=== PATIENT | female | born 1955 | race Caucasian/White ===

== ENCOUNTER → 2018-10-22 | Outpatient (CLI) | payer MEDICARE ==
--- NOTE | 2018-10-22 14:44 | BD ---
EXAMINATION TYPE: Axial Bone Density DATE OF EXAM: 10/22/2018 COMPARISON: NONE CLINICAL HISTORY: Height: 64 IN Weight: 232 LBS RISK FACTORS HISTORY OF: Active: YES Postmenopausal woman: AGE 53 MEDICATIONS: Additional Medications: VIT D, MULTI VIT, CLARITIN, TYLENOL, FLONASE, BABY ASPIRIN, EXAM MEASUREMENTS: Bone mineral densitometry was performed using the i-nexus System. Bone mineral density as measured about the Lumbar spine is: ----- L1-L4(G/cm2): 1.363 T Score Values are as follows: ----- L2: 1.2 ----- L3: 1.7 ----- L4: 1.5 ----- L1-L4: 1.5 Bone mineral density BASELINE Bone mineral density about the R hip (g/cm2): 1.302 Bone mineral density about the L hip (g/cm2): 1.288 T Score values are as follows: -----R Neck: 1.9 -----L Neck: 1.8 -----R Total: 2.8 -----L Total: 2.6 Bone mineral density BASELINE IMPRESSION: No evidence for osteoporosis or osteopenia. NOTE: T-SCORE=SD OF THE YOUNG ADULT MEAN.
--- NOTE | 2018-10-24 08:53 | MM ---
Reason for exam: screening (asymptomatic). Last mammogram was performed 5 years and 2 months ago. History: Patient is postmenopausal. Family history of breast cancer in paternal aunt at age 50. Physical Findings: A clinical breast exam by your physician is recommended on an annual basis and results should be correlated with mammographic findings. MG 3D Screening Mammo W/Cad Bilateral CC and MLO view(s) were taken. Prior study comparison: August 20, 2013, left diagnostic mammogram w/CAD. February 04, 2013, [facility] DIGITAL LEFT BREAST MAMMOGRAM w/CAD. The breast tissue is heterogeneously dense. This may lower the sensitivity of mammography. There is chronic nodularity in the right breast. Dense tissues anteriorly on a background of scattered densities. No significant changes when compared with prior studies. ASSESSMENT: Benign, BI-RAD 2 RECOMMENDATION: Routine screening mammogram of both breasts in 1 year.
== END | disposition home or self-care (01) ==
LOC: RADMAMWWP 13:53
PROVIDERS: ATTEND Family Medicine
DX: Z12.31 Encounter for screening mammogram for malignant neoplasm of breast (principal); M89.9 Disorder of bone, unspecified
CPT/HCPCS: 77063; 77067; 77080

== ENCOUNTER → 2019-12-01 | Outpatient (CLI) | payer MEDICARE ==
[2019-12-01 16:54] LABS: Basophils # (A) 0.1 k/uL (0-0.2); Basophils % (A) 1 %; Eosinophils # (A) 0.3 k/uL (0-0.7); Eosinophils % (A) 4 %; HCT 44.7 % (34.0-46.0); HGB 14.6 gm/dL (11.4-16.0); Lymphocytes # (A) 2.6 k/uL (1.0-4.8); Lymphocytes % (A) 29 %; MCH 29.1 pg (25.0-35.0); MCHC 32.7 g/dL (31.0-37.0); Mean Platelet Volume 7.5; Monocytes # (A) 0.4 k/uL (0-1.0); Monocytes % (A) 5 %; Neutrophils # (A) 5.3 k/uL (1.3-7.7); Neutrophils % (A) 59 %; Platelet Count 226 k/uL (150-450); RBC 5.02 m/uL (3.80-5.40); RDW 13.4 % (11.5-15.5)
== END | disposition home or self-care (01) ==
LOC: LABPAT 15:41
PROVIDERS: ATTEND Obstetrics & Gynecology
DX: Z01.818 Encounter for other preprocedural examination (principal); Z01.812 Encounter for preprocedural laboratory examination; N95.0 Postmenopausal bleeding; R93.89 Abnormal findings on diagnostic imaging of other specified body structures; I10 Essential (primary) hypertension
CPT/HCPCS: 85025; 93005

== ENCOUNTER 2019-12-14 08:50 | Day surgery (SDC) | payer MEDICARE ==
[2019-12-09 11:19] VITALS: BMI 39.6
[~2019-12-14 08:50] MED LIST: DEXAMETHASONE SOD PHOSPHATE 10 MG/ML 1 ML VIAL IV ONE; HYDROmorphone 0.5 MG/0.5 ML SYRINGE IVP PRN; LACTATED RINGERS 1,000 ML IV SCH; MIDAZOLAM 2 MG/2 ML VIAL IV PRN; ONDANSETRON 4 MG/2 ML VIAL IVP ONE; Pre Op ABX Message 1 EACH MISC MISCELLANE ONE
[2019-12-14 09:25] LABS: Glucose,Whole Blood 108 mg/dL (75-99)
[2019-12-14] MEDS ORDERED: SUCCINYLCHOLINE CHLORIDE 100 MG/5 ML SYR IV ONE (10:19)
[2019-12-14] MEDS ORDERED: KETOROLAC 30 MG/ML 1 ML VIAL ONE (10:19)
[2019-12-14] MEDS ORDERED: LIDOCAINE 1% INJ 10MG/ML (20 ML MDV) ONE (10:19)
[2019-12-14] MEDS ORDERED: MIDAZOLAM 2 MG/2 ML VIAL ONE (10:19)
[2019-12-14] MEDS ORDERED: fentaNYL (PF) 50 MCG/ML 2 ML AMP ONE (10:19)
[2019-12-14] MEDS ORDERED: PROPOFOL 10 MG/ML 20 ML VIAL IV ONE (10:19)
[2019-12-14] MEDS ORDERED: SILVER NITRATE APPLICATOR 1 EACH STICK..EA. TOPICAL ONE (10:51)
--- NOTE | 2019-12-14 10:58 | P.OP ---
Date of Procedure: 12/14/19 Preoperative Diagnosis: Postmenopausal bleeding, thickened endometrium sonographically, inability to sample cavity in the office setting. Postoperative Diagnosis: Endometrial polyp, pathology otherwise pending. Procedure(s) Performed: Hysteroscopy, D&C of the endometrial cavity, polypectomy Anesthesia: TRACEA Surgeon: Tiera Valero Estimated Blood Loss (ml): 20 IV fluids (ml): 300 Urine output (ml): 50 Pathology: other (Endometrial curettings and endometrial polyp) Condition: stable Disposition: PACU Description of Procedure: Patient is brought to the operating room where general anesthetic is administered. She's placed in the dorsal lithotomy position. The appropriate timeout is performed to assure proper patient and procedural identification. Bladder is drained for 50 mL of clear yellow urine. The cervix, vagina, per ineal bodies are all prepped and draped in the usual sterile fashion. Examination under anesthesia reveals a small anteverted anteflex uterus, negative adnexa bilaterally. Weighted speculum was placed into the vagina. Anterior lip of the cervix is grasped with a double-tooth tenaculum. Cervix sounds to a depth of 8 cm in the anteverted position. The cervix is gently and systematically dilated using Hanks dilators. The hysteroscope was placed and sterile fluid is used to distend the uterine cavity. Inspection of the cavity reveals an irregular surface, with the suggestion of an endometrial polyp. The hysteroscope was removed. A medium sharp curette is used and the cavity is systematically and gently curettaged. A large endometrial polyp is procured and sent to pathology along with the specimen. The hysteroscope was once again introduced and the cavity is noted to be smooth, clear and dry. All instrumentation is removed. All sponge needle and enhancement counts are correct. The anterior lip of the cervix has a small puncture wound from the tenaculum on which a single [id number] suture of 3-0 repeat is placed. Hemostasis is excellent. Patient is brought back to recovery room in very good condition with stable vital signs including a pulse of 80, blood pressure 156/91, 98% O2 saturation. Toradol is given prior to leaving the operative suite. Patient will follow-up with me in the office in 2 weeks.
[2019-12-14 11:08] VITALS: TEMP 96.9
[2019-12-14 11:56] VITALS: RESP 17
[2019-12-14 12:10] VITALS: BP 123/65; PULSE 66
== END 2019-12-14 12:45 | disposition home or self-care (01) ==
LOC: OR 08:50
PROVIDERS: ATTEND Obstetrics & Gynecology
DX: N84.0 Polyp of corpus uteri (principal); N95.0 Postmenopausal bleeding; Z88.2 Allergy status to sulfonamides; E11.9 Type 2 diabetes mellitus without complications; M79.7 Fibromyalgia; J30.2 Other seasonal allergic rhinitis; Z79.82 Long term (current) use of aspirin; Z79.899 Other long term (current) drug therapy; Z98.41 Cataract extraction status, right eye; Z98.51 Tubal ligation status; Z82.49 Family history of ischemic heart disease and other diseases of the circulatory system; Z83.3 Family history of diabetes mellitus; Z80.3 Family history of malignant neoplasm of breast; Z80.49 Family history of malignant neoplasm of other genital organs
CPT/HCPCS: 88305; 58558; J2250; J1100; J2405; J2001; J3010; J1885; J0330; J2704

== ENCOUNTER → 2022-09-14 | Outpatient (CLI) | payer MEDICARE ==
--- NOTE | 2022-09-17 11:06 | MM ---
Reason for Exam: Screening (asymptomatic). Last mammogram was performed 3 year(s) and 10 month(s) ago. Patient History: Menarche at age 8. First Full-Term at age 21. Postmenopausal. Patient used Progesterone for 1 year. Paternal aunt had breast cancer, age 50. Risk Values: Moon 5 year model risk: 1.7%. NCI Lifetime model risk: 5.2%. Prior Study Comparison: Screening Mammogram, [facility]. 02/02/2013 Bilateral Screening Mammogram, [facility]. 02/04/2013 Left Diagnostic Mammogram, [facility]. 08/20/2013 Left Diagnostic Mammogram, [facility]. 10/22/2018 Bilateral Screening Mammogram, [facility]. Tissue Density: There are scattered fibroglandular densities. Findings: Analyzed By CAD. Stable focal asymmetry is in the anterior right breast. No suspicious groups of microcalcifications, spiculated or lobular masses, architectural distortion or other secondary signs of malignancy are mammographically apparent. Overall Assessment: Benign, BI-RAD 2 Management: Screening Mammogram of both breasts in 1 year. A negative mammogram report should not preclude additional follow up of suspicious palpable abnormalities. Patient should continue monthly self breast exam. A clinical breast exam by your physician is recommended on an annual basis and results should be correlated with mammographic findings. Electronically signed and approved by: Boubacar Small D.O. Radiologis
== END | disposition home or self-care (01) ==
LOC: RADMAMWWP 15:48
PROVIDERS: ATTEND Family Medicine
DX: Z12.31 Encounter for screening mammogram for malignant neoplasm of breast (principal); Z78.0 Asymptomatic menopausal state; Z80.3 Family history of malignant neoplasm of breast
CPT/HCPCS: 77063; 77067

== ENCOUNTER → 2023-11-01 | Outpatient (CLI) | payer MEDICARE ==
--- NOTE | 2023-11-05 21:19 | MM ---
Reason for Exam: Screening (asymptomatic). Last mammogram was performed 1 year(s) and 2 month(s) ago. Patient History: Menarche at age 8. First Full-Term at age 21. Postmenopausal. Patient used Progesterone for 1 year. Paternal aunt had breast cancer, age 50. Risk Values: Moon 5 year model risk: 1.7%. NCI Lifetime model risk: 5.0%. Prior Study Comparison: 08/20/2013 Left Diagnostic Mammogram, [facility]. 10/22/2018 Bilateral Screening Mammogram, [facility]. 09/14/2022 Bilateral MG 3D screening mammo w/cad, [facility]. Tissue Density: There are scattered fibroglandular densities. Findings: Analyzed By CAD. Chronic nodularity in the right breast. Benign vascular calcifications on the left. There is no suspicious group of microcalcifications or new suspicious mass in either breast. Overall Assessment: Benign, BI-RAD 2 Management: Screening Mammogram of both breasts in 1 year. . Patient should continue monthly self-breast exams. A clinical breast exam by your physician is recommended on an annual basis. This exam should not preclude additional follow-up of suspicious palpable abnormalities. Note on Moon scores and lifetime risk: 1. A Moon score greater than 3% is considered moderate risk. If this is the case, consider specialist referral to assess eligibility for a risk reducing agent. 2. If overall lifetime risk for the development of breast cancer is 20% or higher, the patient may qualify for future screening with alternating mammogram and breast MRI. Electronically signed and approved by: Felecia Khan M.D. Radiologist
== END | disposition home or self-care (01) ==
LOC: RADMAMWWP 15:47
PROVIDERS: ATTEND Family Medicine
DX: Z12.31 Encounter for screening mammogram for malignant neoplasm of breast (principal); Z80.3 Family history of malignant neoplasm of breast; Z78.0 Asymptomatic menopausal state
CPT/HCPCS: 77063; 77067

== ENCOUNTER → 2024-11-02 | Outpatient (CLI) | payer MEDICARE ==
--- NOTE | 2024-11-02 13:12 | BD ---
EXAMINATION TYPE: Axial Bone Density DATE OF EXAM: 11/02/2024 CLINICAL HISTORY: 69 years old Female. ICD-10 CODE: Z12.31 SCR MAMMO M81.0 AGE RELATED OSTEO , Addit ional History: Height: 64 Weight: 239 FRAX RISK QUESTIONS: Secondary Osteoporosis: RISK FACTORS HISTORY OF: MEDICATIONS: EXAM MEASUREMENTS: Bone mineral densitometry was performed using the [employer] System. Bone mineral density as measured about the Lumbar spine is: ----- L1-L4(G/cm2): 1.392 T Score Values are as follows: ----- L1: 1.7 ----- L2: 0.9 ----- L3: 1.7 ----- L4: 2.4 ----- L1-L4: 1.8 Z Score Values are as follows: ----- L1: 2.2 ----- L2: 1.4 ----- L3: 2.2 ----- L4: 2.9 ----- L1-L4: 2.3 Bone mineral density has: unknown, previous unavailable % since study of: 10-22-18 Bone mineral density about the R hip (g/cm2): 1.369 Bone mineral density about the L hip (g/cm2): 1.304 T Score values are as follows: -----R Neck: 1.9 -----L Neck: 1.3 -----R Total: 2.9 -----L Total: 2.4 Z Score values are as follows: -----R Neck: 2.9 -----L Neck: 2.3 -----R Total: 3.6 -----L Total: 3.1 Bone mineral density has: unknown, previous unavailable % since study of: 10-22-18 FRAX%s: The graph provided illustrates a 4.9% chance for a major osteoporotic fx and a 0.1% chance fo r the hips probability for fx in 10 years time. IMPRESSION: Normal (Values between +1 and -1 indicate normal bone mass). Consider repeating this study in 5 year s or sooner if there is some new clinical indication. NOTE: T-SCORE=SD OF THE YOUNG ADULT MEAN. [facility], , 11/02/2024 1:10 PM
--- NOTE | 2024-11-03 10:31 | MM ---
Reason for Exam: Screening (asymptomatic). Last screening mammogram was performed 12 month(s) ago. Patient History: Menarche at age 8. First Full-Term at age 21. Postmenopausal. Patient used Progesterone for 1 year. Paternal aunt had breast cancer, age 50. Risk Values: Moon 5 year model risk: 1.7%. NCI Lifetime model risk: 4.7%. Prior Study Comparison: 10/22/2018 Bilateral Screening Mammogram, [facility]. 09/14/2022 Bilateral MG 3D screening mammo w/cad, [facility]. 11/01/2023 Bilateral MG 3D screening mammo w/cad, [facility]. Tissue Density: There are scattered areas of fibroglandular density. Findings: Analyzed By CAD. Right breast: There is no suspicious group of microcalcifications or new suspicious mass. Left breast: There is no suspicious group of microcalcifications or new suspicious mass. Overall Assessment: Negative, BI-RAD 1 Management: Screening Mammogram of both breasts in [address] [facility] will attempt to contact patient to return for supplemental views and ultrasound if indicated. Patient should continue monthly self-breast exams. A clinical breast exam by your physician is recommended on an annual basis. This exam should not preclude additional follow-up of suspicious palpable abnormalities. Note on Moon scores and lifetime risk: 1. A Moon score greater than 3% is considered moderate risk. If this is the case, consider specialist referral to assess eligibility for a risk reducing agent. 2. If overall lifetime risk for the development of breast cancer is 20% or higher, the patient may qualify for future screening with alternating mammogram and breast MRI. [facility], , 11/03/2024 10:27 AM. Electronically signed and approved by: Felton Keane DO
== END | disposition home or self-care (01) ==
LOC: RADMAMWWP 10:52
PROVIDERS: ATTEND Family Medicine
DX: Z12.31 Encounter for screening mammogram for malignant neoplasm of breast (principal); M81.0 Age-related osteoporosis without current pathological fracture; Z78.0 Asymptomatic menopausal state; Z80.3 Family history of malignant neoplasm of breast; R92.323 Mammographic fibroglandular density, bilateral breasts
CPT/HCPCS: 77063; 77067; 77080